=== PATIENT | female | born 1960 | race Caucasian/White ===

== ENCOUNTER 2020-10-20 08:38 | Outpatient (NON) | payer OTHER, SELFPAY ==
[2020-10-20 20:58] LABS: SARS-CoV-2 RNA PCR Negative
== END 2020-10-20 08:39 ==
LOC: ANHCOVIDDT 08:40
PROVIDERS: PCP Family Medicine; Visit Provider Family Medicine
DX: R09.81 Nasal congestion (principal); Z20.828 Contact with and (suspected) exposure to other viral communicable diseases
CPT/HCPCS: 87635; C9803; U0003

== ENCOUNTER 2021-03-12 07:18 | Outpatient (CLI) | payer OTHER, SELFPAY ==
--- NOTE | ~2021-03-12 | MM_ITS ---
EXAMINATION: MM screening marco BI w heather HISTORY: Screening TECHNIQUE: Craniocaudal and mediolateral oblique 3-D tomosynthesis images were obtained and synthetic 2-D images were generated. CAD analysis was submitted and interpreted. COMPARISON: Comparison to multiple prior studies sequentially, with oldest reviewed study dated 04/2012. BREAST PARENCHYMAL COMPOSITION: The breasts are heterogeneously dense, which may obscure small masses . FINDINGS: There is no evidence of suspicious mass, calcification, or architectural distortion to sugg est malignancy in either breast. There has been no suspicious interval change. IMPRESSION: 1. No mammographic evidence of malignancy. 2. Recommend routine screening mammography in one year. BI-RADS Category 1: Negative Reviewed, dictated and finalized at location A.
== END 2021-03-12 07:19 | disposition home or self-care (01) ==
PROVIDERS: PCP Family Medicine; Visit Provider Physician Assistant Medical
DX: Z12.31 Encounter for screening mammogram for malignant neoplasm of breast (principal)
CPT/HCPCS: 77063; 77067

== ENCOUNTER 2021-04-08 13:29 | Outpatient (CLI) | payer OTHER, SELFPAY ==
--- NOTE | ~2021-04-08 | DEXA_ITS ---
Bone Density Report Name: Deirdre Samayoa Age: 61 Sex: Female Ethnicity: White Date of : 1960 Indication: postmenopausal; parental hip fracture; height loss; Referring Provider: Mik Devine Study: Bone densitometry was performed. Exam Date: April 08, 2021 Accession number: [id number] Bone Density: Region BMD T-score Z-score Classification AP Spine (L1-L4) 0.954 -0.8 0.7 Normal Femoral Neck (Left) 0.670 -1.6 -0.2 Osteopenia Total Hip (Left) 0.819 -1.0 0.1 Normal Total Hip Bilateral Avg 0.842 -0.8 0.3 Normal Femoral Neck (Right) 0.734 -1.0 0.3 Normal Total Hip (Right) 0.864 -0.6 0.4 Normal World Health Organization criteria for BMD impression classify patients as: Normal (T-score at or above -1.0), Osteopenia (T-score between -1.0 and -2.5), or Osteoporosis (T-score at or below -2.5). 10-year Fracture Risk(1): Major Osteoporotic Fracture 17% Hip Fracture 0.9% Reported Risk Factors: [place] (), Neck BMD=0.670, BMI=26.2, parental fracture (1) FRAX(R) Version 3.08. Fracture probability calculated for an untreated patient. Fracture probability may be lower if the patient has received treatment. Previous Exams: Region Exam Age BMD T-score BMD Change BMD Change Date g/cm2 vs Baseline vs Previous AP Spine(L1-L4) 04/08/2021 61 0.954 -0.8 -0.146(-13.3%) -0.150(-13.6%) 11/24/2007 47 1.103 0.5 0.003(0.3%) 0.003(0.3%) 07/16/2003 43 1.100 0.5 Total Hip(Left) 04/08/2021 61 0.819 -1.0 -0.058(-6.6%)# -0.050(-5.8%)# 11/24/2007 47 0.869 -0.6 -0.007(-0.9%) -0.007(-0.9%) 07/16/2003 43 0.877 -0.5 Total Hip(Right) 04/08/2021 61 0.864 -0.6 -0.037(-4.1%)# -0.030(-3.4%)# 11/24/2007 47 0.895 -0.4 -0.006(-0.7%) -0.006(-0.7%) 07/16/2003 43 0.901 -0.3 *Denotes significance at 95% confidence level, LSC for AP Spine = 0.022 g/cm2, LSC for Total Hip = 0.027 g/cm2 Clinical Information Provided by Patient: Parent has had a hip fracture Has used the following medications: Vitamin D Patient maximum height was 66.5 Menopause Age: 47 No regular weight bearing exercise Drinks caffeinated beverages Onset of menses at age 12 Number of children 3 Impression: The patient has low bone mass, based on the Left Femoral Neck T-score. The patient has an estimated ten-year risk of hip fracture of 0.9% and an estimated ten-year risk of major fracture of 17%, based on the WHO FRAX algorithm. The patient has
== END 2021-04-08 13:30 | disposition home or self-care (01) ==
LOC: ANHIMG 13:32
PROVIDERS: PCP Family Medicine; Visit Provider Physician Assistant Medical
DX: Z78.0 Asymptomatic menopausal state (principal); M85.852 Other specified disorders of bone density and structure, left thigh
CPT/HCPCS: 77080

== ENCOUNTER 2021-09-25 09:46 | Emergency (ER) | payer OTHER, SELFPAY ==
--- NOTE | ~2021-09-25 | CT_ITS ---
EXAMINATION: CT cervical spine wo con DATE: 09/25/2021 11:36 INDICATION: Head injury. Syncope. TECHNIQUE: Computed tomography (CT) of the cervical spine was performed without intravenous contrast. Automated exposure control and iterative reconstruction technique were employed. The dose-length pro duct was 299.82 mGy-cm. COMPARISON: CT cervical spine MRI 11/12/2018 FINDINGS: There are small mastoid effusions. There is 2 mm retrolisthesis of C5 on C6. Vertebral body heights are normal. There is severely decreased disc height at C5-C6 and moderately decreased disc h eight at C6-C7. The following disc levels are specifically discussed: C2-C3: There is mild right uncovertebral joint osteoarthritis. There is severe left facet joint osteo arthritis. There is no neural foraminal stenosis. There is no central canal stenosis. C3-C4: There is severe right and mild left uncovertebral joint osteoarthritis. There is severe bilate ral facet joint osteoarthritis. There is mild right neural foraminal stenosis. There is no central ca nal stenosis. C4-C5: There is mild bilateral uncovertebral joint osteoarthritis. There is severe bilateral facet piero int osteoarthritis. There is mild bilateral neural foraminal stenosis. There is mild central canal st enosis. C5-C6: There is severe bilateral uncovertebral joint osteoarthritis. There is no facet joint osteoart hritis. There is moderate bilateral neural foraminal stenosis. There is mild central canal stenosis. C6-C7: There is severe bilateral uncovertebral joint osteoarthritis. There is moderate bilateral face t joint osteoarthritis. There is moderate bilateral neural foraminal stenosis. There is mild central canal stenosis. C7-T1: There is no uncovertebral joint osteoarthritis. There is mild bilateral facet joint osteoarthr itis. There is no neural foraminal stenosis. There is no central canal stenosis. IMPRESSION: 1. No fracture. 2. Severe cervical spondylosis, stable from 11/12/2018. Reviewed, dictated and finalized at location A.
--- NOTE | ~2021-09-25 | CT_ITS ---
EXAMINATION: CT brain wo con INDICATION: Head injury COMPARISON: 11/11/2018 TECHNIQUE: Standard unenhanced head CT. The dose-length product (DLP) was 605.33 mGy-cm. The mA was a djusted according to patient size. Iterative reconstruction technique was employed. FINDINGS: There is no intracranial hemorrhage, acute infarction, or abnormal mass lesion. The ventric les are normal. There is no abnormal mass effect or midline shift. The atkinson-white matter differentiat ion is normal. The basal cisterns are patent. The orbits are normal. The paranasal sinuses, mastoids and calvarium are normal. IMPRESSION: 1. No acute intracranial abnormality. Reviewed, dictated and finalized at location A.
--- NOTE | ~2021-09-25 | XR_ITS ---
EXAMINATION: XR chest 2V EXAM DATE: 09/25/2021 10:54 INDICATION: Syncope, weakness. TECHNIQUE: Frontal and lateral projections of the chest obtained and reviewed. Comparison is made to prior examination from 11/11/2018. FINDINGS: The lungs are clear. There are no pleural effusions. The cardiomediastinal silhouette is within normal limits. There is no pneumothorax suspected. The bones and soft tissues are unremarkab le. IMPRESSION: No acute cardiopulmonary findings. Reviewed, dictated and finalized at location B.
--- NOTE | 2021-09-25 10:00 | ECG_ITS ---
Measurements Intervals [place] Rate: 68 P: 27 WA: 150 QRS: 2 QRSD: 105 T: 17 QT: 368 QTc: 393 Interpretive Statements SINUS RHYTHM DELAYED PRECORDIAL R/S TRANSITION NONSPECIFIC ST & T-WAVE ABNORMALITY- ANTEROLAT/INF LEADS BASELINE ARTIFACT- II, III, AVR, AVF, V3-V6 BORDERLINE ECG Electronically Signed On 09-25-2021 13:41:32 CDT by Ramsey De Guzman D.O.
[2021-09-25 10:07] VITALS: BP 122/62; PULSE 77; RESP 13; TEMP 36.6; O2SAT 100
--- NOTE | 2021-09-25 10:49 | PC.NURSE ---
PT taken to Xray via stretcher
--- NOTE | 2021-09-25 11:04 | ED.SYNCOPE ---
HPI - Syncope General Chief Complaint: Syncope <Marcie Sadler PA-C - Last Filed: 09/25/21 13:06> Stated Complaint: syncope <KARAN Davalos Last Filed: 09/25/21 13:06> Time Seen by Provider: 09/25/21 10:57 <Marcie Sadler PA-C - Last Filed: 09/25/21 13:06> Source: patient and family <KARAN Davalos Last Filed: 09/25/21 13:06> Mode of arrival: ambulatory <KARAN Davalos Last Filed: 09/25/21 13:06> Limitations: no limitations <KARAN Davalos Last Filed: 09/25/21 13:06> History of Present Illness HPI narrative: This is a 61-year-old female that presents to the emergency department after syncopal episode this morning. Reports she recently received her Covid booster 2 days ago. Reports she had been feeling generally achy and having some chills. She is feeling a little bit better this morning. She went to take a shower. She started to feel very hot and nauseous in the shower. She felt like she might vomit. She started to feel very lightheaded so called for her . She was trying to get out of the shower and on upon his arrival she passed out. Reports she hit her head on the chair rail. Does report a similar event in the past. Does report still feeling a little bit weak and nauseous. Reports a laceration below her lip. Reports she is up-to-date on tetanus. Denies chest pain, shortness of breath, vision changes, vomiting, weakness, or numbness. <KARAN Davalos Last Filed: 09/25/21 13:06> Related Data Allergies/Adverse Reactions: Allergies Allergy/AdvReac Type Severity Reaction Status Date / Time Sulfa (Sulfonamide Allergy Unknown Unknown Verified 09/25/21 11:45 Antibiotics) <Marcie Sadler PA-C - Last Filed: 09/25/21 13:06> Review of Systems Review of Systems: CONSTITUTIONAL: Denies fever EYES: Denies visual changes CARDIOVASCULAR: Denies chest pain,or edema. RESPIRATORY: Denies dyspnea. GASTROINTESTINAL: Denies vomiting MUSCULOSKELETAL: Reports joint pain and nausea. Denies back pain NEUROLOGIC: Denies headache, numbness, or weakness. <Marcie Sadler PA-C - Last Filed: 09/25/21 13:06> All systems reviewed & are unremarkable except as noted in HPI and below <Marcie Sadler PA-C - Last Filed: 09/25/21 13:06> PMFSH Past Medical History Medical History: Medical History (Updated 09/25/21 @ 13:02 by Marcie Sadler PA-C) Hyperlipidemia, unspecified Hypothyroidism (acquired) <Marcie Sadler PA-C - Last Filed: 09/25/21 13:06> Family History Family History: Family History Father Family history of cardiovascular disease, Onset Age: 75 Mother Family history of cardiovascular disease, Onset Age: 66 Other Family history of elevated blood lipids <Marcie Sadler PA-C - Last Filed: 09/25/21 13:06> Social History Social History: Social History Smoking status: Never smoker Smoking end date: 11/28/78 Alcohol intake: current <Marcie Sadler PA-C - Last Filed: 09/25/21 13:06> Exam Narrative: GENERAL: Well-appearing, well-nourished, and in no acute distress. HEAD: Normocephalic. 1 cm linear laceration into subcutaneous tissue below the bottom lip EYES: PERRLA and EOMI. ENT: Nares clear, no rhinorrhea or epistaxis. Mucous membranes moist. Oropharynx without tonsillar hypertrophy exudate or other lesions. Bilateral TMs pearly atkinson non-bulging NECK: Supple. No adenopathy or masses. Tender to palpation of midline cervical spine CHEST: Clear to auscultation. No respiratory distress. No wheezes rales or rhonchi HEART: Regular rate and rhythm. No murmur heard. Normal peripheral pulses. BACK: No midline thoracic or lumbar spine tenderness EXTREMITIES: Normal range of motion. No edema. Strength equal in bilateral upper and lower extremities (5/5). SKIN: Warm,
[2021-09-25 11:38] LABS: Basophils Percent Auto 0.5 % (0.2-1.2); Eosinophils Absolute Auto 0.1 K/mm3 (0-0.3); Eosinophils Percent Auto 1.7 % (0-4.4); Hematocrit 39.7 % (37.0-47.0); Immature Granulocyte Absolute 0.03 K/mm3 (0.00-0.031); Immature Granulocyte Percent A 0.5 % (0-0.5); Lymphocytes Absolute Auto 1.21 K/mm3 (0.9-3.2); Lymphocytes Percent Auto 18.4 % (18.3-44.2); Mean Corpuscular HGB Conc 32.7 g/dl (32-36); Mean Corpuscular Hemoglobin 31.2 pg (26-34); Mean Corpuscular Volume 95.2 fl (80-100); Mean Platelet Volume 10.8 fl (7.4-10.4); Monocytes Absolute Auto 0.6 K/mm3 (0.1-0.6); Monocytes Percent Auto 9.7 % (2.6-8.5); Neutrophils Absolute Auto 4.6 K/mm3 (1.3-6.7); Neutrophils Percent Auto 69.2 % (45.5-73.1); Platelet Count Result 238 k/mm3 (150-375); Red Blood Count 4.17 M/mm3 (4.2-5.4); Red Cell Distribution Width 13.2 % (11.5-14.5); White Blood Count 6.6 K/mm3 (4.5-10.0)
[2021-09-25] MEDS: SODIUM CHLORIDE 0.9% IV 1,000 ML 999 ML IV CONT (11:41)
[2021-09-25] MEDS: ONDANSETRON INJ 4 MG/2 ML VIAL IV PUSH (11:42)
[2021-09-25 11:54] LABS: Anion Gap 9 mmol/L (8-16); Blood Urea Nitrogen 16 mg/dL (7-17); Calcium 9.7 mg/dL (8.4-10.2); Carbon Dioxide 28 mmol/L (22-30); Chloride 101 mmol/L (98-107); Estimated CRCL calculation 58 ml/min; Estimated Glomerular Filt Rate > 60; Glucose 106 mg/dL (65-110); Potassium 4.3 mmol/L (3.4-5.0); Sodium 138 mmol/L (137-145)
[2021-09-25 12:06] LABS: Troponin I < 0.012 ng/mL (0.000-0.034)
[2021-09-25 12:08] LABS: Partial Thromboplastin Time 25.8 SECONDS (22.3-36.8)
[2021-09-25 12:54] VITALS: BP 107/54; PULSE 64
[2021-09-25 12:57] VITALS: BP 109/61; PULSE 67
[2021-09-25 12:58] VITALS: BP 112/57; PULSE 70
[2021-09-25 13:30] VITALS: BP 112/57; PULSE 70; RESP 16; O2SAT 100
== END 2021-09-25 13:30 | disposition home or self-care (01) ==
PROVIDERS: Physician Assistant; Emergency Provider Emergency Medicine; PCP Family Medicine
DX: R55 Syncope and collapse (principal); S01.511A Laceration without foreign body of lip, initial encounter; E78.5 Hyperlipidemia, unspecified; E03.9 Hypothyroidism, unspecified; M47.812 Spondylosis without myelopathy or radiculopathy, cervical region; W01.198A Fall on same level from slipping, tripping and stumbling with subsequent striking against other object, initial encounter
CPT/HCPCS: 12011; 36415; 70450; 71046; 72125; 80048; 84443; 84484; 85025; 85610; 85730; 93005; 96361; 96374; 99284; J2405; J7030

== ENCOUNTER 2022-05-23 13:30 | Emergency (ER) | payer OTHER, SELFPAY ==
[2022-05-23] VITALS (22 sets, daily range): BP systolic 110–150; BP diastolic 53–67; PULSE 54–81; RESP 12–20; TEMP 36.6; O2SAT 98–100
--- NOTE | ~2022-05-23 | XR_ITS ---
EXAMINATION: XR chest 2V Exam Date/Time: 05/23/2022 14:10 CDT HISTORY: dizziness, NAUSEA Comparison: 09/25/2021. RESULT: Lines, tubes, and devices: None. Lungs and pleura: Clear. Cardiomediastinal silhouette: Stable cardiomediastinal silhouette. Other: No acute osseous or upper abdominal finding. IMPRESSION: No acute cardiopulmonary process. Reviewed, dictated and finalized at location K.
--- NOTE | ~2022-05-23 | CT_ITS ---
EXAMINATION: CT brain wo con DATE: 05/23/2022 14:11 INDICATION: dizziness . TECHNIQUE: Computed tomography (CT) of the head was performed without intravenous contrast. The mA wa s adjusted according to patient size. Iterative reconstruction technique was employed. The dose-lengt h product was 605.33 mGy-cm. COMPARISON: 09/25/2021 FINDINGS: No acute intracranial hemorrhage or extra-axial fluid collection. No hydrocephalus, mass, or herniation. No acute ischemic infarct. Unremarkable dural venous sinus attenuation. No acute osseous abnormality. The aerated spaces are clear. IMPRESSION: No acute intracranial process. Reviewed, dictated and finalized at location K.
--- NOTE | 2022-05-23 13:33 | ECG_ITS ---
Measurements Intervals [place] Rate: 70 P: 41 WI: 171 QRS: 7 QRSD: 97 T: 25 QT: 373 QTc: 402 Interpretive Statements SINUS RHYTHM NONSPECIFIC ST & T-WAVE ABNORMALITY COMPARED TO ECG 09/25/2021 09:56:26 NO SIGNIFICANT DIFFERENCE Electronically Signed On 05-24-2022 7:14:23 CDT by Ever Hester M.D.
[2022-05-23 13:48] LABS: Basophils Percent Auto 0.3 % (0.2-1.2); Eosinophils Absolute Auto 0.1 K/mm3 (0-0.3); Eosinophils Percent Auto 0.5 % (0-4.4); Hematocrit 37.2 % (37.0-47.0); Hemoglobin 12.6 g/dL (12.0-15.0); Immature Granulocyte Absolute 0.04 K/mm3 (0.00-0.031); Immature Granulocyte Percent A 0.4 % (0-0.5); Lymphocytes Absolute Auto 2.13 K/mm3 (0.9-3.2); Mean Corpuscular HGB Conc 33.9 g/dl (32-36); Mean Corpuscular Hemoglobin 31.6 pg (26-34); Mean Corpuscular Volume 93.2 fl (80-100); Mean Platelet Volume 10.3 fl (7.4-10.4); Monocytes Absolute Auto 0.5 K/mm3 (0.1-0.6); Monocytes Percent Auto 5.8 % (2.6-8.5); Neutrophils Absolute Auto 6.5 K/mm3 (1.3-6.7); Platelet Count Result 260 k/mm3 (150-375); Red Blood Count 3.99 M/mm3 (4.2-5.4); Red Cell Distribution Width 13.2 % (11.5-14.5); White Blood Count 9.3 K/mm3 (4.5-10.0)
--- NOTE | 2022-05-23 13:48 | ED.DIZZY ---
HPI - Dizziness General Chief Complaint: Dizziness Stated Complaint: dizzy Time Seen by Provider: 05/23/22 13:32 Source: RN notes reviewed History of Present Illness HPI Narrative: Patient presents emergency department from home for dizziness. Patient states symptoms began yesterday afternoon. States that dizziness feels like the room is spinning states is associated with nausea. States she did have 1 episode of emesis on the way to the ER. She denies any fevers or chills, vision changes, numbness or tingling in extremities, chest pain abdominal pain. States she does have occasional shortness of breath. Related Data Allergies Allergy/AdvReac Type Severity Reaction Status Date / Time cephalexin Allergy Mild eye Verified 05/23/22 18:01 itching and swelling Sulfa (Sulfonamide Allergy Unknown Unknown Verified 05/23/22 18:01 Antibiotics) Review of Systems Review of Systems: Gen.: Denies fevers or chills Eyes: Denies eye pain or visual change ENT: Denies congestion Respiratory: Reports occasional short of breath denies cough CV: Denies chest pain or palpitations GI: Denies abdominal pain or diarrhea. Reports nausea vomiting x1 Musculoskeletal: Denies back pain or muscle pain Neuro: Denies numbness, tingling, weakness or focal weakness Skin: Denies rash Except as documented, all other systems reviewed and negative [facility] Past Medical History Medical History Hyperlipidemia, unspecified Hypothyroidism (acquired) Family History Family History Father Family history of cardiovascular disease, Onset Age: 75 Mother Family history of cardiovascular disease, Onset Age: 66 Other Family history of elevated blood lipids Social History Social History (Updated 05/23/22 @ 13:49 by Macario Smiley DO) Smoking status: Former smoker Smoking end date: 11/28/78 Alcohol intake: current Exam Narrative: APPEARANCE: No acute distress, nontoxic, resting in bed HEENT: Normocephalic, atraumatic, OMM, EYES: PERRL, EOMI NECK: Supple, nontender, full range of motion without pain, no meningismus RESPIRATORY: No respiratory distress, clear to auscultation bilaterally with no rhonchi wheezing or rales CARDIOVASCULAR: RRR s murmur ABDOMINAL: Soft, nontender, nondistended MUSCULOSKELETAL: Moves all extremities. No clubbing, cyanosis or edema. NEURO: A and O ?3, following commands, speech normal, cranial nerves II through XII grossly intact,muscle strength 5 out of 5 bilateral upper and lower extremities, no pronator drift SKIN:: Warm, dry. Normal Color PSYCHIATRIC: Normal affect/mood Course Course Emergency Course: Patient had bilateral ears irrigated with improvement of dizziness Patient states dizziness is improved following medication able get up and ambulate in ED with no difficulty Discussed with patient results of workup and diagnosis. Discussed need for follow-up with primary care, proper use of medication, and reasons to return to the emergency department. Patient understands and agrees to current treatment plan Vital Signs Vital signs: Vital Signs Pulse Rate 81 05/23/22 13:34 Respiratory Rate 20 05/23/22 13:34 Blood Pressure 150/67 H 05/23/22 13:34 Pulse Oximetry 98 05/23/22 13:34 Oxygen Delivery Room Air 05/23/22 13:34 Temperature 97.9 F 05/23/22 16:35 Pulse Rate 74 05/23/22 19:03 Respiratory Rate 16 05/23/22 19:03 Blood Pressure 113/55 L 05/23/22 19:03 Pulse Oximetry 100 05/23/22 19:03 Oxygen Delivery Room Air 05/23/22 13:34 MDM - Dizziness MDM Narrative Medical decision making narrative: Patient's vertigo is felt to be likely peripheral in origin. There is no diplopia, dysarthria or dysphagia. Patient's gait is stable and there are no cerebral deficits to exam. Risk factor for central causes of vertigo reviewed. Naun
[2022-05-23 14:03] LABS: Alanine Aminotransferase 23 U/L (6-35); Albumin Level 4.5 g/dL (3.5-5.1); Alkaline Phosphatase 74 U/L (38-126); Anion Gap 5 mmol/L (8-16); Aspartate Amino Transferase 27 U/L (14-36); Blood Urea Nitrogen 15 mg/dL (7-17); Calcium 9.2 mg/dL (8.4-10.2); Carbon Dioxide 26 mmol/L (22-30); Chloride 104 mmol/L (98-107); Estimated CRCL calculation 64 ml/min; Estimated Glomerular Filt Rate > 60; Glucose 123 mg/dL (65-110); Potassium 4.2 mmol/L (3.4-5.0); Sodium 135 mmol/L (137-145)
[2022-05-23 14:18] LABS: Troponin I < 0.012 ng/mL (0.000-0.034)
--- NOTE | 2022-05-23 14:18 | PC.NURSE ---
Pt in xray/CT
[2022-05-23] MEDS: ONDANSETRON INJ 4 MG/2 ML VIAL IV PUSH (14:22)
[2022-05-23] MEDS: MECLIZINE HCL 25 MG TABLET PO (14:27)
[2022-05-23 14:53] LABS: Appearance Urine Clear (Clear); Bilirubin Urine Negative (Negative); Blood Urine Negative (Negative); Color Urine Yellow (Yellow); Glucose Urine UA Negative (Negative); Ketones Urine Trace mg/dL (Negative); Leukocyte Esterase Ur Trace LEU/UL (Negative); Nitrate Urine Negative (Negative); Protein Urine Negative (Negative); Urobilinogen Urine 0.2 mg/dL (<2.0)
[2022-05-23 14:57] LABS: Mucus Urine Rare /lpf; RBC Urine 0-2 /hpf (0-2); Squamous Epithelial Cell Urine Rare /hpf (Few); WBC Urine 0-3 /hpf
[2022-05-23 14:58] LABS: Add Urine Microscopic? YES
[2022-05-23] MEDS: diazePAM INJ (*CRX) 10 MG/2 ML SYRINGE 2 MG IV PUSH (16:43)
== END 2022-05-23 19:36 | disposition home or self-care (01) ==
PROVIDERS: Emergency Provider Emergency Medicine; PCP Family Medicine
DX: R42 Dizziness and giddiness (principal); E78.5 Hyperlipidemia, unspecified; E03.9 Hypothyroidism, unspecified; Z87.891 Personal history of nicotine dependence
CPT/HCPCS: 36415; 70450; 71046; 80053; 81001; 84484; 85025; 93005; 96374; 96375; 99284; A9270; J2405; J3360

== ENCOUNTER 2022-10-20 09:13 | Emergency (ER) | payer OTHER, SELFPAY ==
[2022-10-20 10:23] VITALS: BP 119/78; PULSE 77; RESP 16; TEMP 36.6; O2SAT 100
--- NOTE | 2022-10-20 10:40 | ED.URI ---
HPI - URI/Sore Throat General Chief Complaint: Upper Respiratory Infection Stated Complaint: SINUS CONGESTION/SORE THROAT Time Seen by Provider: 10/20/22 10:34 Source: patient Mode of arrival: ambulatory Limitations: no limitations History of Present Illness HPI Narrative: Patient presents today with a 2 day history of body aches, sinus pressure, sore throat leading to cough. She did go home COVID-19 test yesterday that was negative. She used some Vicks Vaporub and cough drops with some mild relief. Denies any history of asthma or COPD. Reports multiple sick contacts with her grandchildren, but with nothing specific. Related Data Home Medications Medication Instructions Recorded Confirmed cholecalciferol (vitamin D3) 50 50 mcg PO DAILY 09/09/22 10/20/22 mcg (2,000 unit) capsule Allergies Allergy/AdvReac Type Severity Reaction Status Date / Time cephalexin Allergy Mild eye Verified 10/20/22 10:25 itching and swelling Sulfa (Sulfonamide Allergy Unknown Unknown Verified 10/20/22 10:25 Antibiotics) Review of Systems Review of Systems: CONSTITUTIONAL: Denies fever, chills, or sweats.+ body aches EYES: Denies visual changes, redness, or discharge. ENT: Denies rhinorrhea, congestion, or otalgia.+ sinus pressure, sore throat CARDIOVASCULAR: Denies chest pain, palpitations, or edema. RESPIRATORY: Denies dyspnea.+ cough GASTROINTESTINAL: Denies abdominal pain, nausea, vomiting, or diarrhea. GENITOURINARY: Denies dysuria or hematuria. SKIN: Denies rash, itching, or wounds. MUSCULOSKELETAL: Denies back pain, joint pain, or myalgia. NEUROLOGIC: Denies headache, numbness, tingling, or weakness. PSYCH: Denies depression or anxiety. [facility] Past Medical History Medical History Hyperlipidemia, unspecified Hypothyroidism (acquired) Family History Family History Father Family history of cardiovascular disease, Onset Age: 75 Mother Family history of cardiovascular disease, Onset Age: 66 Other Family history of elevated blood lipids Social History Social History (Reviewed 10/20/22 @ 10:42 by Angely Cervantes, KYUNG, Alyse Smoking status: Former smoker Smoking end date: 11/28/78 Alcohol intake: current Comments At time of signature, I have reviewed and agree with nursing past medical, surgical, social and family history unless otherwise noted. Please see nursing chart for further information. There is no relevant family history pertinent to the presenting complaint Exam Narrative: GENERAL: Well-appearing, well-nourished, and in no acute distress. HEAD: Normocephalic, atraumatic. EYES: EOMI. No redness or drainage. Conjunctivae normal. ENT: Mucous membranes pink and moist. Nares clear with rhinorrhea. Deviated septum. Nasal turbinates appear normal. TMs normal bilaterally. Throat normal. Uvula midline. NECK: Normal AROM. Supple. No lymphadenopathy. CHEST: No respiratory distress. Clear to auscultation. HEART: Regular rate and rhythm. No murmur appreciated. Normal peripheral pulses. EXTREMITIES: Normal range of motion. No edema. SKIN: Warm, dry, no rash. Capillary refill normal. Normal skin turgor. NEURO: No focal deficits. Alert and oriented x3. Gait steady. PSYCH: Normal affect. No signs of depression or anxiety. Course Course Level of Care: Express Care Visit Vital Signs Vital signs: Vital Signs Temperature 98 F 10/20/22 10:23 Pulse Rate 77 10/20/22 10:23 Respiratory Rate 16 10/20/22 10:23 Blood Pressure 119/78 10/20/22 10:23 Pulse Oximetry 100 10/20/22 10:23 Oxygen Delivery Room Air 10/20/22 10:23 Temperature 98 F 10/20/22 10:23 Pulse Rate 77 10/20/22 10:23 Respiratory Rate 16 10/20/22 10:23 Blood Pressure 119/78 10/20/22 10:23 Pulse Oximetry 100 10/20/22 10:23 Oxygen Delivery Ro
== END 2022-10-20 11:07 | disposition home or self-care (01) ==
PROVIDERS: Emergency Provider Nurse Practitioner; PCP Family Medicine
DX: J06.9 Acute upper respiratory infection, unspecified (principal); E78.5 Hyperlipidemia, unspecified; E03.9 Hypothyroidism, unspecified
CPT/HCPCS: 87804; 99212; G0463

== ENCOUNTER → 2022-12-28 10:32 | Outpatient (CLI) | payer OTHER, SELFPAY ==
--- NOTE | ~2022-12-28 | XR_ITS ---
EXAMINATION: XR thoracic spine 3V DATE: 12/28/2022 10:55 INDICATION: Cough and back pain TECHNIQUE: AP, lateral and lateral swimmer's views of the thoracic spine were obtained. COMPARISON: None. FINDINGS: Bone alignment is normal. There is no fracture. The vertebral body heights are maintained. There is moderate loss of intervertebral disc space height at multiple levels throughout the thoracic spine. Small degenerative osteophytes project from the anterior endplates of multiple vertebral bodi es. Severe cervical spondylosis is noted at C5-6. There are 13 degrees of thoracolumbar levoscoliosis . IMPRESSION: 1. Moderate thoracic spondylosis without acute findings. Reviewed, dictated and finalized at location L. CAL TECHNOLOGIST PRN
--- NOTE | ~2022-12-28 | XR_ITS ---
EXAMINATION: XR chest 2V DATE: 12/28/2022 10:54 INDICATION: Cough and back pain TECHNIQUE: PA and lateral views of the chest are obtained. COMPARISON: 05/19/2022 FINDINGS: The lungs are free of acute opacities. No pleural effusion or pneumothorax. The cardiomedia stinal silhouette is normal. There is moderate thoracic spondylosis. IMPRESSION: 1. No acute cardiopulmonary abnormality. Reviewed, dictated and finalized at location L. LOPER DESIGNER
== END ==
PROVIDERS: PCP Family Medicine; Visit Provider Physician Assistant
DX: M54.9 Dorsalgia, unspecified (principal); R06.02 Shortness of breath; M43.04 Spondylolysis, thoracic region
CPT/HCPCS: 71046; 72072

== ENCOUNTER 2023-04-14 09:07 | Outpatient (CLI) | payer OTHER, SELFPAY ==
[2023-04-15 09:02] LABS: Kit Draw Collected
== END 2023-04-14 09:08 | disposition home or self-care (01) ==
LOC: ANHGOSHLAB 09:09
PROVIDERS: PCP Family Medicine; Visit Provider Family Medicine
DX: E03.9 Hypothyroidism, unspecified (principal); E78.5 Hyperlipidemia, unspecified; R73.01 Impaired fasting glucose
CPT/HCPCS: 36415

== ENCOUNTER 2023-05-09 13:31 | Outpatient (CLI) | payer OTHER, SELFPAY ==
--- NOTE | 2023-05-09 13:44 | ECHO_ITS ---
Patient Info Name: Deirdre Samayoa Age: 63 years : 1960 Gender: Female Ht: 65 in Wt: 172 lbs BSA: 1.91 m2 HR: 78 bpm BP: 118 / 72 mmHg Technical Quality: Fair Exam Date: 05/09/2023 2:11 PM Exam Location: [facility] Patient Status: Outpatient Admit Date: 05/09/2023 Staff Ordering Physician: Florida Helton MD Associate Automation Engineer: Sonja Landeros RDCS Attending Provider: Florida Helton MD Referring Physician: Danie HANNAH; Exam Type: CA echo doppler color flow Study Info Indications - short of breath Complete two-dimensional, color flow and Doppler transthoracic echocardiogram is performed. Summary 1. Complete two-dimensional, color flow and Doppler transthoracic echocardiogram is performed. 2. Left ventricular chamber dimension is normal. 3. Left ventricular systolic function is normal, estimated at 60-65%. 4. The left ventricular diastolic function is abnormal. 5. E/e' 10 is mildly elevated. 6. Left atrial chamber dimension is mildly enlarged. 7. There is mild to moderate mitral valve regurgitation. 8. There is mild tricuspid valve regurgitation. 9. No pulmonary hypertension, estimated pulmonary arterial systolic pressure is 28 mmHg. 10. There is trace pulmonic regurgitation. Left Ventricle E/e' 10 is mildly elevated. Left ventricular chamber dimension is normal. Left ventricular systolic function is normal, estimated at 60-65%. The left ventricular diastolic function is abnormal. Right Ventricle Right ventricular chamber dimension is normal. Right ventricular systolic function is normal. Left Atria Left atrial chamber dimension is mildly enlarged. Right Atria Right atrial chamber dimension is normal. Aortic Valve The aortic valve is trileaflet. There is no aortic valve stenosis. There is no aortic valve regurgitation. Pulmonic Valve There is trace pulmonic regurgitation. Mitral Valve There is no mitral valve stenosis. There is mild to moderate mitral valve regurgitation. Tricuspid Valve There is mild tricuspid valve regurgitation. No pulmonary hypertension, estimated pulmonary arterial systolic pressure is 28 mmHg. Pericardium/Pleural There is no pericardial effusion. Inferior Vena Cava Normal inferior vena cava with >50% collapse upon inspiration consistent with normal right atrial pressure, 5 mmHg. Aorta The aortic root size at the sinus of Valsalva is normal. Left Ventricular Outflow Tract Name Value Normal LVOT 2D LVOT Diameter 2.0 cm LVOT Doppler LVOT Peak Gradient 3 mmHg LVOT Mean Gradient 2 mmHg LVOT VTI 23 cm LVOT VTI/AV VTI Ratio 1.0 LVOT Stroke Volume 73 ml LVOT CO 13.4 l/min LVOT CI 7.0 l/min/m2 Pulmonic Valve Name Value Normal RVOT Doppler RVOT Peak Gradient
== END 2023-05-09 13:32 | disposition home or self-care (01) ==
PROVIDERS: PCP Family Medicine; Visit Provider Family Medicine
DX: R06.02 Shortness of breath (principal); Z86.16 Personal history of COVID-19; I36.1 Nonrheumatic tricuspid (valve) insufficiency; I34.0 Nonrheumatic mitral (valve) insufficiency
CPT/HCPCS: 93306

== ENCOUNTER 2024-04-10 08:11 | Outpatient (CLI) | payer MEDICARE, OTHER, SELFPAY ==
[2024-04-10 18:39] LABS: Basophils Percent Auto 0.5 % (0.2-1.2); Eosinophils Absolute Auto 0.2 K/mm3 (0-0.3); Hematocrit 36.2 % (37.0-47.0); Hemoglobin 11.9 g/dL (12.0-15.0); Immature Granulocyte Absolute 0.01 K/mm3 (0.00-0.031); Immature Granulocyte Percent A 0.2 % (0-0.5); Lymphocytes Percent Auto 34.1 % (18.3-44.2); Mean Corpuscular HGB Conc 32.9 g/dl (32-36); Mean Corpuscular Hemoglobin 31.6 pg (26-34); Mean Platelet Volume 11.1 fl (7.4-10.4); Monocytes Absolute Auto 0.4 K/mm3 (0.1-0.6); Monocytes Percent Auto 7.3 % (2.6-8.5); Neutrophils Absolute Auto 3.1 K/mm3 (1.3-6.7); Neutrophils Percent Auto 54.9 % (45.5-73.1); Platelet Count Result 254 k/mm3 (150-375); Red Blood Count 3.77 M/mm3 (4.2-5.4); Red Cell Distribution Width 13.8 % (11.5-14.5); White Blood Count 5.6 K/mm3 (4.5-10.0)
[2024-04-10 20:53] LABS: Alanine Aminotransferase 29 U/L (6-35); Albumin Level 4.3 g/dL (3.5-5.1); Alkaline Phosphatase 62 U/L (38-126); Anion Gap 6 mmol/L (4-12); Aspartate Amino Transferase 37 U/L (14-36); Bilirubin,Total 0.9 mg/dL (0.2-1.3); Blood Urea Nitrogen 18 mg/dL (7-17); Calcium 9.8 mg/dL (8.4-10.2); Carbon Dioxide 27 mmol/L (22-30); Chloride 108 mmol/L (98-107); Cholesterol 213 mg/dL (0-200); Estimated Glomerular Filt Rate > 60; Glucose 89 mg/dL (65-110); HDL Direct 62 mg/dL; Potassium 4.4 mmol/L (3.4-5.0); Sodium 141 mmol/L (137-145); Triglycerides 80 mg/dL (<150)
[2024-04-10 21:04] LABS: LDL Cholesterol Direct 122 mg/dL
== END 2024-04-10 08:12 | disposition home or self-care (01) ==
PROVIDERS: PCP Family Medicine; Visit Provider Nurse Practitioner Family
DX: M85.80 Other specified disorders of bone density and structure, unspecified site (principal); E03.9 Hypothyroidism, unspecified; E78.5 Hyperlipidemia, unspecified; I10 Essential (primary) hypertension; R73.01 Impaired fasting glucose
CPT/HCPCS: 36415; 80053; 80061; 83036; 84439; 84443; 85025

== ENCOUNTER 2024-05-15 12:43 | Outpatient (CLI) | payer MEDICARE, OTHER, SELFPAY ==
--- NOTE | 2024-05-15 12:48 | ECHO_ITS ---
Patient Info Name: Deirdre Samayoa Age: 64 years : 1960 Gender: Female Ht: 65 in Wt: 172 lbs BSA: 1.91 m2 HR: 75 bpm BP: 132 / 62 mmHg Heart Rhythm: Sinus Rhythm Technical Quality: Fair Exam Date: 05/15/2024 1:07 PM Exam Location: Echo Lab Patient Status: Outpatient Admit Date: 05/15/2024 Staff Ordering Physician: Ramsey De Guzman DO [employer] Dean: Angeles Capone RDCS Attending Provider: aRmsey De Guzman DO Referring Physician: Gab BERNAL; Exam Type: CA echo doppler color flow Study Info Indications I34.0 - Nonrheumatic mitral (valve) insufficiency Complete two-dimensional, color flow and Doppler transthoracic echocardiogram is performed. Summary 1. Complete two-dimensional, color flow and Doppler transthoracic echocardiogram is performed. 2. Left ventricular chamber dimension is normal. 3. Left ventricular systolic function is normal, estimated at 65-70%. 4. The left ventricular diastolic function is grade I diastolic dysfunction. 5. E/e' 8 is minimally elevated. 6. Left atrial chamber dimension is mildly enlarged. 7. There is trace tricuspid valve regurgitation. 8. No pulmonary hypertension, estimated pulmonary arterial systolic pressure is 25 mmHg. Left Ventricle E/e' 8 is minimally elevated. Left ventricular chamber dimension is normal. Left ventricular systolic function is normal, estimated at 65-70%. The left ventricular diastolic function is grade I diastolic dysfunction. Right Ventricle Right ventricular systolic function is normal and with normal TAPSE 1.9 cm. Right ventricular chamber dimension is normal. Left Atria Left atrial chamber dimension is mildly enlarged. Right Atria Right atrial chamber dimension is normal. Aortic Valve The aortic valve is trileaflet. There is no aortic valve stenosis. There is no aortic valve regurgitation. Pulmonic Valve There is no pulmonic regurgitation. Mitral Valve There is no mitral valve stenosis. There is no mitral valve regurgitation. Tricuspid Valve There is trace tricuspid valve regurgitation. No pulmonary hypertension, estimated pulmonary arterial systolic pressure is 25 mmHg. Pericardium/Pleural There is no pericardial effusion. Inferior Vena Cava Normal inferior vena cava with >50% collapse upon inspiration consistent with normal right atrial pressure, 5 mmHg. Aorta The aortic root size at the sinus of Valsalva is normal. Left Ventricular Outflow Tract Name Value Normal LVOT 2D LVOT Diameter 2.0 cm LVOT Doppler LVOT Peak Gradient 3 mmHg LVOT Mean Gradient 1 mmHg LVOT VTI 18 cm LVOT VTI/AV VTI Ratio 0.8 LVOT Stroke Volume 56 ml LVOT CO 3.3 l/min LVOT CI 1.7 l/min/m2 Pulmonic Valve Name Value Normal RVOT Doppler RVOT Peak Gradient 1 mmHg
== END 2024-05-15 12:44 | disposition home or self-care (01) ==
PROVIDERS: PCP Family Medicine; Visit Provider Internal Medicine Cardiovascular Disease
DX: I34.0 Nonrheumatic mitral (valve) insufficiency (principal); I51.89 Other ill-defined heart diseases
CPT/HCPCS: 93306

== ENCOUNTER 2024-07-18 08:09 | Outpatient (CLI) | payer MEDICARE, OTHER, SELFPAY ==
[2024-07-18 13:44] LABS: Hemoglobin A1C 5.5 % (<5.7)
== END 2024-07-18 08:10 | disposition home or self-care (01) ==
PROVIDERS: PCP Family Medicine; Visit Provider Family Medicine
DX: E03.9 Hypothyroidism, unspecified (principal); E78.5 Hyperlipidemia, unspecified; Z79.899 Other long term (current) drug therapy
CPT/HCPCS: 36415; 83036; 84443

== ENCOUNTER 2024-11-15 08:11 | Outpatient (CLI) | payer MEDICARE, OTHER, SELFPAY ==
[2024-11-15 13:15] LABS: Alanine Aminotransferase 20 U/L (6-35); Albumin Level 4.6 g/dL (3.5-5.1); Alkaline Phosphatase 73 U/L (38-126); Anion Gap 2 mmol/L (4-12); Aspartate Amino Transferase 80 U/L (14-36); Bilirubin,Total 1.5 mg/dL (0.2-1.3); Blood Urea Nitrogen 16 mg/dL (7-17); Calcium 9.6 mg/dL (8.4-10.2); Carbon Dioxide 33 mmol/L (22-30); Chloride 105 mmol/L (98-107); Estimated Glomerular Filt Rate > 60; Glucose 87 mg/dL (65-110); Potassium 4.5 mmol/L (3.4-5.0); Sodium 140 mmol/L (137-145)
[2024-11-15 15:17] LABS: Hemoglobin A1C 5.2 % (<5.7)
== END 2024-11-15 08:12 | disposition home or self-care (01) ==
LOC: ANHGOSHLAB 08:12
PROVIDERS: PCP Family Medicine; Visit Provider Family Medicine
DX: E03.9 Hypothyroidism, unspecified (principal); R73.01 Impaired fasting glucose
CPT/HCPCS: 36415; 80053; 83036; 84443

== ENCOUNTER 2025-02-18 08:52 | Outpatient (CLI) | payer MEDICARE, OTHER, SELFPAY ==
--- OUTSIDE RECORDS SUMMARY | 2025-02-18 09:32 | XMS_ITS | Clinical Summary ---
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 Gender Identity Not on file Sexual Orientation Not on file Plan of Treatment Health Maintenance Due Date Last Done Comments DEXA Bone Density 1960 Hepatitis C Virus (HCV) Screening 1960 TdaP Immunization 1960 Pap Smear 02/28/1980 Cervical Cancer Screening (CCS) 1989 HPV/Cotest 1989 Colonoscopy 02/28/2004 Colorectal Cancer Screening 02/28/2004 Cologuard 2009 Immunochemical Fecal Occult Blood 2009 Mammogram 2009 Pneumococcal Immunization (5 0+ years) (1 of 1 - PCV) 2009 Zoster Immunization (1 of 2) 2009 Influenza Immunization (#1) 2024 10/0 06/2020, 08/08/2019, 08/16/2018 SARS-COV-2 Immunization ( - 2023-25 season) 2024 Respiratory Syncytial Virus (RSV) Immunization (Adult) (1 - 1-dose 75+ series) 2034 Hepatitis B Immunization Aged Out No longer eligible based on patient's age to complete this topic Meningococcal Immunization (ACWY) Aged Out No longer eligible b ased on patient's age to complete this topic Rotavirus Immunization Aged Out No lo nger eligible based on patient's age to complete this topic
[2025-02-18 15:37] LABS: Alanine Aminotransferase 23 U/L (6-35); Albumin Level 4.3 g/dL (3.5-5.1); Alkaline Phosphatase 67 U/L (38-126); Anion Gap 9 mmol/L (4-12); Aspartate Amino Transferase 35 U/L (14-36); Blood Urea Nitrogen 16 mg/dL (7-17); Calcium 9.7 mg/dL (8.4-10.2); Carbon Dioxide 29 mmol/L (22-30); Chloride 104 mmol/L (98-107); Estimated Glomerular Filt Rate > 60; Glucose 74 mg/dL (65-110); Potassium 4.3 mmol/L (3.4-5.0); Sodium 142 mmol/L (137-145)
[2025-02-18 17:06] LABS: Hepatitis B Surface Antigen Negative (Negative)
[2025-02-18 17:11] LABS: HAV RESULT Negative (Negative); Hepatitis B Core IgM Result Negative (Negative)
[2025-02-18 17:23] LABS: Hepatitis C Virus Antibody Negative (Negative)
== END 2025-02-18 08:53 | disposition home or self-care (01) ==
LOC: ANHGOSHLAB 08:53
PROVIDERS: PCP Family Medicine; Visit Provider Family Medicine
DX: R74.01 Elevation of levels of liver transaminase levels (principal); R73.01 Impaired fasting glucose; E03.9 Hypothyroidism, unspecified; R74.8 Abnormal levels of other serum enzymes
CPT/HCPCS: 36415; 80053; 80074; 84443

== ENCOUNTER 2025-08-26 08:30 | Outpatient (CLI) | payer MEDICARE, OTHER, SELFPAY ==
--- OUTSIDE RECORDS SUMMARY | 2025-08-26 08:40 | XMS_ITS | Clinical Summary ---
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 Gender Identity Not on file Sexual Orientation Not on file Plan of Treatment Health Maintenance Due Date Last Done Comments Hepatitis C Virus (HCV) Screening 1960 TdaP Immunization 1960 Cologuard 02/28/2004 Colonoscopy 02/28/2004 Colorectal Cancer Screening 02/28/2004 Immunochemical Fecal Occult Blood 02/28/2004 Pneumococcal Immunization (5 0+ years) (1 of 1 - PCV) 2009 Zoster Immunization (1 of 2) 2009 SARS-COV-2 Immunization ( - 2023- season) 2024 Influenza Immunization (#1) 2025 10/0 06/2020, 08/08/2019, 08/16/2018 Respiratory Syncytial Virus (RSV) Immunization (Adult) (1 - 1-dose 75+ series) 2034 Hepatitis B Immunization Aged Out No longer eligible based on patient's age to complete this topic Human Papillomavirus (HPV) Immunization Aged Out No longer eligible b ased on patient's age to complete this topic Meningococcal Immunization (ACWY) Aged Out No longer eligible b ased on patient's age to complete this topic Rotavirus Immunization Aged Out No lo nger eligible based on patient's age to complete this topic
[2025-08-26 13:13] LABS: Alanine Aminotransferase 29 U/L (6-35); Albumin Level 4.5 g/dL (3.5-5.1); Alkaline Phosphatase 62 U/L (38-126); Anion Gap 8 mmol/L (4-12); Aspartate Amino Transferase 72 U/L (14-36); Bilirubin,Total 1.2 mg/dL (0.2-1.3); Blood Urea Nitrogen 18 mg/dL (7-17); Calcium 9.4 mg/dL (8.4-10.2); Carbon Dioxide 28 mmol/L (22-30); Chloride 103 mmol/L (98-107); Cholesterol 247 mg/dL (0-200); Estimated Glomerular Filt Rate > 60; Glucose 81 mg/dL (65-110); HDL Direct 70 mg/dL; Potassium 4.4 mmol/L (3.4-5.0); Sodium 139 mmol/L (137-145); Total Protein 7.4 g/dL (6.3-8.2); Triglycerides 58 mg/dL (<150)
[2025-08-26 13:36] LABS: Hemoglobin A1C 5.2 % (<5.7)
[2025-08-26 13:39] LABS: Thyroid Stimulating Hormone Reflex 2.760 uIU/mL (0.465-4.68)
== END 2025-08-26 08:31 | disposition home or self-care (01) ==
LOC: ANHGOSHLAB 08:31
PROVIDERS: PCP Family Medicine; Visit Provider Family Medicine
DX: E78.5 Hyperlipidemia, unspecified (principal)
CPT/HCPCS: 36415; 80053; 80061; 83036; 84443

== ENCOUNTER 2025-09-05 09:05 | Outpatient (CLI) | payer MEDICARE, OTHER, SELFPAY ==
--- NOTE | ~2025-09-05 | US_ITS ---
EXAMINATION: US abdomen complete, 09/05/2025 9:15 CDT HISTORY: R74.8 - Abnormal levels of other serum enzymes COMPARISON: None Technique: Herring-scale and color Doppler images were obtained. Findings: LIVER: Lliver contours intact, no lesions. Normal echogenicity. . GALLBLADDER/BILIARY: Unremarkable.No cholelithiais, wall thickening or pericholecystic fluid. No biliary dilatation. CBD 6 mm. [place] sign negative. PANCREAS: Pancreas limited by bowel gas. SPLEEN: Unremarkable, no splenomegaly. KIDNEYS: Right Kidney: Right kidney 10.6 x 3.4 x 3.7 cm, normal. Left Kidney: Left kidney 9.3 x 3.9 x 5 cm, normal. AORTA: Normal caliber aorta. IVC: Unremarkable. FREE FLUID: None. Impression: No acute abnormality. Reviewed, dictated and finalized at location P. Impression: No acute abnormality.
== END 2025-09-05 09:06 | disposition home or self-care (01) ==
LOC: GOSHIMG 09:06
PROVIDERS: PCP Family Medicine; Visit Provider Family Medicine
DX: R74.8 Abnormal levels of other serum enzymes (principal)
CPT/HCPCS: 76700